=== PATIENT | male | born 1985 | race Caucasian/White ===

== ENCOUNTER 2018-09-30 21:14 | Emergency (ER) | payer OTHER, MEDICAID, SELFPAY ==
[2018-09-30 21:15] VITALS: BP 127/73; PULSE 78; RESP 18; TEMP 36.9; O2SAT 100; BMI 26.8
--- NOTE | 2018-09-30 21:18 | ED_ITS ---
HPI - General Adult General Chief complaint: Allergic Reaction Stated complaint: ALLERGIC REACTION Time Seen by Provider: 09/30/18 21:18 Source: patient Mode of arrival: ambulatory Limitations: no limitations History of Present Illness HPI narrative: 33-year-old male with a known history to nuts. Has had an anaphylactic reaction in the past. Does have an EpiPen. States that he was inadvertently exposed to nuts shortly before arrival here to the emergency department. States that he did feel like his throat was swelling. No rashes. Did take 325 mg Benadryl prior to arrival. He stated that he felt like his symptoms were somewhat improving. Related Data Home Medications Medication Instructions Recorded Confirmed dextroamphetamine-amphetamine #0 08/22/17 [Adderall] epinephrine #0 08/22/17 methylphenidate HCl #0 08/22/17 propranolol #0 08/22/17 sumatriptan [Imitrex] #0 08/22/17 Previous Rx's Medication Instructions Recorded hydrocortisone [Proctozone-HC] 1 ed TN HS #30 gm 08/22/17 Allergies Allergy/AdvReac Type Severity Reaction Status Date / Time cefaclor [From CECLOR] Allergy Unknown Unverified 09/17/17 12:51 fish derived [FISH DERIVED] Allergy Unknown Unverified 09/17/17 12:51 tree nut [TREE NUT] Allergy Unknown Unverified 09/17/17 12:51 Review of Systems Constitutional Denies fever(s) and Denies headache(s) Eyes Denies itchy eyes ENT Ears, Nose, Mouth, and Throat: Denies dizziness, Denies headache(s), Denies lip swelling, Reports sore throat, Reports throat swelling and Denies tongue swelling Cardiovascular Denies chest pain, Denies syncope and Denies dyspnea Respiratory Denies dyspnea Gastrointestinal Gastrointestinal: Denies abdominal pain, Denies nausea and Denies vomiting Musculoskeletal Denies myalgias and Denies arthralgias Integumentary/Breasts Denies rash Neurologic Denies dizziness, Denies syncope and Denies headache(s) Hematologic/Lymphatic Denies easy bleeding and Denies easy bruising Allergic/Immunologic Denies urticaria, Denies itchy eyes, Denies lip swelling, Reports throat swelling and Denies tongue swelling [facility] Medical History Anaphylaxis (Acute) Social History Smoking Status: Current every day smoker Social History Smoking Status: Current every day smoker Exam Initial Vital Signs Initial Vital Signs: Vital Signs Temperature 98.5 F 09/30/18 21:15 Pulse Rate 78 09/30/18 21:15 Respiratory Rate 18 09/30/18 21:15 Blood Pressure 127/73 09/30/18 21:15 Pulse Oximetry 100 09/30/18 21:15 Const General: cooperative, healthy appearing, comfortable, well developed, well groomed and No acute distress Orientation: alert, awake and oriented x3 HENMT Head: normal to inspection and normocephalic Ears: hearing grossly normal bilaterally Nose: external nose normal Face and sinus: normal facial exam Mouth: oral mucosae normal Teeth and gingiva: dentition normal Throat: posterior oropharynx normal Resp Effort & Inspection: normal respiratory effort Auscultation: clear to auscultation bilaterally Cardio Rate: regular rate Rhythm: regular rhythm GI Inspection: non-distended Palpation: soft Skin Lesions: no lesions Rashes: no rashes Neuro General: alert, awake and oriented x3 Extrem General: normal to inspection and capillary refill normal Psych Appearance: grossly normal and well kempt Course Orders Ordered: ED Orders 09/30/18 21:20 Basic Metabolic Panel Stat Complete Blood Count AUTO DIFF Stat Discontinued Medications Epinephrine HCl (Epipen) 0.3 mg IM NOW ONE Stop: 09/30/18 21:20 Last Admin: 09/30/18 22:30 Dose: Not Given Epinephrine HCl (Adrenalin) 0.3 mg IM NOW ONE Stop: 09/30/18 21:28 Last Admin: 09/30/18 21:29 Dose: 0.3 mg Sodium Chloride (Normal Saline 0.9%) 1,000 mls @ 1,000 mls/hr IV BOLUS ONE Stop: 09/30/18 22:18 Last Infusion: 09/30/18 22:31 Dose: 1,000 mls/hr Admin: 09/30/18 21:27 Dose: 1,000 mls/hr Famotidine (Pepcid) 20 mg in 50 mls @ 200 mls/hr IV NOW ONE Stop: 09/30/18 21:35 Last Infusion: 09/30/18 21:43 Dose: 0 mls/hr Admin: 09/30/18 21:26 Dose: 200 mls/hr Methylprednisolone (Solu-Medrol 125 Mg Vial) 125 mg IV NOW ONE Stop: 09/30/18 21:20 Last Admin: 09/30/18 21:27 Dose: 125 mg Vital Signs - 8 hr 09/30/18 21:15 09/30/18 22:30 09/30/18 23:00 Temperature 98.5 F Pulse Rate 78 92 H 95 H Respiratory Rate 18 24 23 Blood Pressure 127/73 Blood Pressure [Right Arm] 122/65 133/72 Pulse Oximetry 100 97 96 Medical Decision Making Lab Data Lab results reviewed: Yes I reviewed the patient's lab results. Result diagrams: 09/30/18 21:20 09/30/18 21:20 Lab Results 09/30/18 09/30/18 Range/Units 21:20 21:20 WBC 6.5 (4.5-11.0) X10^3/uL RBC 4.77 (4.5-5.9) X10^6/uL Hgb 14.9 (13.5-17.5) g/dL Hct 43.9 (41-53) % MCV 92.0 (80-100) fL MCH 31.2 (26-34) PG MCHC 33.9 (30-36) % RDW 13.4 (11.6-14.8) % Plt Count 335 (150-400) X10^3/uL Neut % (Auto) 50.4 (50-75) % Lymph % (Auto) 39.5 (25-40) % Bollinger % (Auto) 6.8 (3-14) % Eos % (Auto) 2.8 (2-4) % Baso % (Auto) 0.5 (0-2) % Neut # (Auto) 3300 (5877-7065) /uL Lymph # (Auto) 2600 (7607-4811) /uL Bollinger # (Auto) 400 (0-900) /uL Eos # (Auto) 200 (0-450) /uL Baso # (Auto) 0 (0-100) /uL Sodium 139 (137-145) mmol/L Potassium 3.9 (3.4-5.1) mmol/L Chloride 103 (98-107) mmol/L Carbon Dioxide 26 (22-32) mmol/L BUN 28 H (9-20) mg/dL Creatinine 1.00 (0.66-1.25) mg/dL Estimated GFR > 60.0 (>60) mL/min BUN/Creatinine Ratio 28.0 H (6-22) Glucose 104 H (70-100) mg/dL Calcium 9.5 (8.4-10.2) mg/dL MDM Narrative Medical decision making narrative: Given his 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 He was also given famotidine and Solu-Medrol. He was observed here in the emergency department for 2 hours. Was tolerating oral intake. States he was feeling much better. The patient was asking to go home. I informed him of the standard of watching him here in the emergency department for 4 hours after the epi to watch for a rebound reaction. Patient states that he would like to go home. He does have an EpiPen with him. I do not feel this is unreasonable given the fact that he has axis that if he needs it. He was given strict return precautions and follow-up instructions. Patient expressed u nderstanding and agreement of plan. Discharge Plan Departure Patient Disposition: Home Clinical Impression: Allergic reaction Qualifiers: Encounter type: initial encounter Qualified Code(s): T78.40XA - Allergy, unspecified, initial encounter Instructions: Anaphylaxis, DI for General Allergic Reactions Activity Restrictions/Additional Instructions: Keep your EpiPen with you. If you start to have problems breathing or swall owing or nausea or vomiting associated with the rash please give yourself the EpiPen and return to the emergency department. Contact your primary care doctor for follow-up. Prescriptions: No Action propranolol 60 mg capsule,extended release 24 hr Qty: 0 RF: 0 methylphenidate HCl 5 mg tablet Qty: 0 RF: 0 epinephrine 0.3 mg/0.3 mL auto-injector Qty: 0 RF: 0 dextroamphetamine-amphetamine [Adderall] 5 mg tablet Qty: 0 RF: 0 sumatriptan [Imitrex] 5 mg/actuation spray,non-aerosol Qty: 0 RF: 0 hydrocortisone [Proctozone-HC] 2.5 % cream with perineal applicator 1 ed TN HS Qty: 30 RF: 0
[2018-09-30] MEDS: FAMOTIDINE 20 MG/50 ML PIGGYBACK 200 MG IV (21:26)
[2018-09-30] MEDS: methylPREDNISolone 125 MG/2 ML VIAL IV (21:27)
[2018-09-30] MEDS: SODIUM CHLORIDE 0.9% 1,000 ML 1000 ML IV (21:27)
[2018-09-30] MEDS: EPINEPHrine 1 MG/ML AMPUL 0.3 MG IM (21:29)
--- NOTE | 2018-09-30 21:30 | PC.NURSE ---
Pt states allergic to tree nuts and almonds, had a few sips of a smoothie from [employer] that had almond milk in it. Throat and palms itching. 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
[2018-09-30 21:34] LABS: Add Manual Diff / Slide Review NO; Basophils Absolute Auto 0 /uL (0-100); Basophils Percent Auto 0.5 % (0-2); Eosinophils Absolute Auto 200 /uL (0-450); Eosinophils Percent Auto 2.8 % (2-4); Hematocrit 43.9 % (41-53); Hemoglobin 14.9 g/dL (13.5-17.5); Lymphocytes Absolute Auto 2600 /uL (1100-4500); Lymphocytes Percent Auto 39.5 % (25-40); Mean Corpuscular HGB Conc 33.9 % (30-36); Mean Corpuscular Hemoglobin 31.2 PG (26-34); Monocytes Absolute Auto 400 /uL (0-900); Monocytes Percent Auto 6.8 % (3-14); Neutrophils Absolute Auto 3300 /uL (1500-7000); Neutrophils Percent Auto 50.4 % (50-75); Platelet Count 335 X10^3/uL (150-400); Red Blood Cell Count 4.77 X10^6/uL (4.5-5.9); Red Cell Distribution Width 13.4 % (11.6-14.8); White Blood Cell Count 6.5 X10^3/uL (4.5-11.0)
[2018-09-30 21:47] LABS: Blood Urea Nitrogen 28 mg/dL (9-20); Calcium 9.5 mg/dL (8.4-10.2); Carbon Dioxide 26 mmol/L (22-32); Chloride 103 mmol/L (98-107); Estimated Glomerular Filt Rate > 60.0 mL/min (>60); Glucose 104 mg/dL (70-100); HEMOLYSIS < 15 (0-50); Potassium 3.9 mmol/L (3.4-5.1); Sodium 139 mmol/L (137-145)
[2018-09-30 22:30] VITALS: BP 122/65; PULSE 92; RESP 24; O2SAT 97
[2018-09-30 23:00] VITALS: BP 133/72; PULSE 95; RESP 23; O2SAT 96
== END 2018-09-30 23:13 | disposition home or self-care (01) ==
PROVIDERS: Emergency Provider Emergency Medicine
DX: T78.40XA Allergy, unspecified, initial encounter (principal)
CPT/HCPCS: 36591; 80048; 85025; 96361; 96365; 96372; 96375; 99283; 99284; J0171; J2930